=== PATIENT | female | born 1985 | race Caucasian/White ===

== ENCOUNTER 2020-10-24 15:26 | Inpatient (IN) ==
[2020-10-24] MEDS ORDERED: SODIUM CHLORIDE 0.9% 1,000 ML IV STA (18:22)
[2020-10-24] MEDS ORDERED: ONDANSETRON 4 MG/2 ML VIAL IV ONE (18:23)
[2020-10-24] MEDS ORDERED: MORPHINE 2 MG/1 ML SYRINGE IV STA ×2 (18:23→20:46)
[2020-10-24 19:58] LABS: Bilirubin,Urine Negative (Negative); Blood, Urine Small mg/dL (Negative); Glucose,Urine (UA) Negative (Negative); Ketones,Urine 20 mg/dL (Negative); Mucus,Urine Occasional /LPF (Occasional); Nitrite,Urine Negative (Negative); Protein,Urine Negative; RBC,Urine 2 /HPF (0-4); Squamous Epithelial Cell,Urine Few /HPF (0-10); Urine Appearance Slightly Hazy (Clear); Urine Color Yellow (Yellow); Urine Specific Gravity 1.003 (1.001-1.035); Urine Urobilinogen < 2.0 EU/DL (0.2-1.0)
[2020-10-24] MEDS ORDERED: PIPERACILLIN/TAZOBACTAM 3,375 MG in SODIUM CHLORIDE 0.9% 100 ML IV STA (20:30)
[2020-10-24 21:00] LABS: Basophils # 0.1 10*3/uL (0.0-0.2); Basophils % 0.3 % (0.0-0.8); Eosinophils # 0.1 10*3/uL (0.0-0.87); Eosinophils % 0.5 % (0.00-10.9); Hematocrit 38.9 VOL% (35.7-47.0); Hemoglobin 13.4 GM/DL (12.0-16.0); Immature Granulocytes % 0.7 %; Immature Granulocytes Absolute 0.16 #; Lymphocytes # 1.3 10*3/uL (1.4-4.0); Mean Corpuscular HGB Conc 34.4 GM/DL (32-36); Mean Corpuscular Volume 93.3 FL (87-102); Mean Platelet Volume 10.4 FL (9.6-12.0); Monocytes % 5.6 % (1.7-12.7); Neutrophils % 86.9 % (38.7-73.9); Platelet Count 194 T/CUMM (130-400); Red Blood Count 4.17 MC/CUMM (3.8-5.5); Red Cell Distribution Width 12.7 % (9.3-17.3); White Blood Count 21.3 T/CUMM (4-12)
[2020-10-24 21:17] LABS: Bilirubin,Total 1.3 MG/DL (0.20-1.00); Calcium 8.3 MG/DL (8.5-10.1); Osmolality,Calculated 262.4 MOS/KG (273-304); Potassium 3.5 MMOL/L (3.5-5.1); Total Protein 6.3 G/DL (6.4-8.2)
[2020-10-24 21:20] LABS: Band Neutrophils 5 % (0-10); Lymphocytes 5 % (20-55); Segmented Neutrophils 88 % (50-85); Total Cells Counted 100
[2020-10-24 21:21] LABS: Platelet Estimate Normal
[2020-10-24] MEDS ORDERED: ONDANSETRON 4 MG/2 ML VIAL IV PRN (22:41)
[2020-10-24] MEDS: MORPHINE 2 MG/1 ML SYRINGE IV PRN (23:09)
[2020-10-24] MEDS: DEXTROSE 5% NACL 0.45% 1,000 ML IV SCH (23:14)
[2020-10-25] MEDS: MORPHINE 2 MG/1 ML SYRINGE IV PRN ×3 (03:07→19:01)
[2020-10-25] MEDS: PIPERACILLIN/TAZOBACTAM 3,375 MG in SODIUM CHLORIDE 0.9% 100 ML IV SCH ×3 (04:28→20:33)
[2020-10-25 05:25] LABS: Basophils % 0.2 % (0.0-0.8); Eosinophils # 0.2 10*3/uL (0.0-0.87); Eosinophils % 0.8 % (0.00-10.9); Hematocrit 36.3 VOL% (35.7-47.0); Hemoglobin 12.3 GM/DL (12.0-16.0); Immature Granulocytes % 1.5 %; Immature Granulocytes Absolute 0.32 #; Lymphocytes # 1.3 10*3/uL (1.4-4.0); Lymphocytes % 6.1 % (21.3-54.2); Mean Corpuscular HGB Conc 33.9 GM/DL (32-36); Mean Platelet Volume 10.9 FL (9.6-12.0); Monocytes % 4.8 % (1.7-12.7); Neutrophils % 86.6 % (38.7-73.9); Platelet Count 192 T/CUMM (130-400); Red Blood Count 3.86 MC/CUMM (3.8-5.5); Red Cell Distribution Width 12.8 % (9.3-17.3); White Blood Count 21.4 T/CUMM (4-12)
[2020-10-25 06:00] LABS: Albumin 2.7 G/DL (3.4-5.0); Bilirubin,Total 0.9 MG/DL (0.20-1.00); Calcium 8.4 MG/DL (8.5-10.1); Potassium 3.5 MMOL/L (3.5-5.1); Total Protein 5.7 G/DL (6.4-8.2)
[2020-10-25 06:03] LABS: Band Neutrophils 1 % (0-10); Lymphocytes 5 % (20-55); Platelet Estimate Normal; Segmented Neutrophils 92 % (50-85); Total Cells Counted 100
[2020-10-25 07:10] LABS: Osmolality,Calculated 257.8 MOS/KG (273-304)
[2020-10-25] MEDS: DEXTROSE 5% NACL 0.45% 1,000 ML IV SCH ×3 (07:55→17:27)
[2020-10-25] MEDS: PANTOPRAZOLE 40 MG VIAL IV SCH (08:56)
[2020-10-25] MEDS ORDERED: PROMETHAZINE INJ 25 MG in SODIUM CHLORIDE 0.9% 50 ML IV PRN (09:53)
[2020-10-25] MEDS ORDERED: MEPERIDINE 25 MG/1 ML VIAL IV PRN (09:53)
[2020-10-25] MEDS ORDERED: diphenhydrAMINE 50 MG/1 ML VIAL IV PRN (09:53)
[2020-10-25] MEDS ORDERED: ONDANSETRON 4 MG/2 ML VIAL IV PRN (09:53)
[2020-10-25] MEDS ORDERED: LIDOCAINE 1%/EPI INJ 20 ML VIAL ONE (11:14)
[2020-10-25] MEDS ORDERED: BUPIVACAINE MPF 0.25% 30 ML VIAL ONE (11:14)
[2020-10-25] MEDS ORDERED: TISSUE ADHESIVE 1 EACH APPLICATOR TOP ONE (11:14)
[2020-10-25] MEDS ORDERED: LIDOCAINE 2% 5 ML VIAL ONE (11:19)
[2020-10-25] MEDS ORDERED: ONDANSETRON 4 MG/2 ML VIAL ONE (11:19)
[2020-10-25] MEDS ORDERED: SUCCINYLCHOLINE 200 MG/10 ML VIAL ONE (11:19)
[2020-10-25] MEDS ORDERED: DEXAMETHASONE 4 MG/1 ML VIAL ONE (11:19)
[2020-10-25] MEDS ORDERED: fentaNYL 100 MCG/2 ML VIAL ONE (11:19)
[2020-10-25] MEDS ORDERED: propofoL 200 MG/20 ML VIAL IV ONE (11:19)
[2020-10-25] MEDS ORDERED: ROCURONIUM 50 MG/5 ML VIAL IV ONE (11:19)
[2020-10-25] MEDS ORDERED: SEVOFLURANE 1 UNIT/15 MINUTE INH ONE ×2 (12:10→13:31)
[2020-10-25] MEDS ORDERED: LACTATED RINGERS 1,000 ML IV ONE (12:10)
[2020-10-25] MEDS ORDERED: HYDROmorphone 2 MG/1 ML VIAL ONE (12:45)
[2020-10-25] MEDS ORDERED: KETOROLAC 30 MG/1 ML VIAL ONE (12:46)
[2020-10-25] MEDS ORDERED: GLYCOPYRROLATE 0.4 MG/2 ML VIAL ONE ×2 (13:07→13:08)
[2020-10-25] MEDS ORDERED: NEOSTIGMINE 10 MG/10 ML VIAL ONE (13:08)
[2020-10-25] MEDS: HYDROmorphone 2 MG/1 ML VIAL IV PRN ×4 (13:50→14:05)
[2020-10-25] MEDS ORDERED: ZALEPLON 5 MG CAPSULE PO ONE (20:44)
[2020-10-26] MEDS: MORPHINE 2 MG/1 ML SYRINGE IV PRN ×3 (01:23→09:52)
[2020-10-26] MEDS: PIPERACILLIN/TAZOBACTAM 3,375 MG in SODIUM CHLORIDE 0.9% 100 ML IV SCH (04:41)
[2020-10-26] MEDS: DEXTROSE 5% NACL 0.45% 1,000 ML IV SCH ×2 (05:36→08:46)
[2020-10-26] MEDS: PANTOPRAZOLE 40 MG VIAL IV SCH (08:47)
[2020-10-26 08:49] LABS: Basophils % 0.2 % (0.0-0.8); Hematocrit 31.8 VOL% (35.7-47.0); Hemoglobin 11.2 GM/DL (12.0-16.0); Immature Granulocytes % 2.1 %; Lymphocytes # 1.2 10*3/uL (1.4-4.0); Lymphocytes % 6.2 % (21.3-54.2); Mean Corpuscular HGB Conc 35.2 GM/DL (32-36); Mean Corpuscular Volume 93.3 FL (87-102); Mean Platelet Volume 10.6 FL (9.6-12.0); Monocytes % 4.3 % (1.7-12.7); Neutrophils % 87.2 % (38.7-73.9); Platelet Count 181 T/CUMM (130-400); Red Blood Count 3.41 MC/CUMM (3.8-5.5)
[2020-10-26 11:09] VITALS: BP 99/62
== END 2020-10-26 11:29 | disposition home or self-care (01) | DRG 418 ==
LOC: N.ED 15:26 → N.EDINP 21:28 → N.3E 22:16
PROVIDERS: ADMIT Surgery; ATTEND Surgery
PROC: LAPCHOL (2020-10-25 11:28)